=== PATIENT | female | born 1990 | race Caucasian/White ===

== ENCOUNTER 2016-11-29 11:30 | Emergency (ER) | payer OTHER ==
[2016-11-29 12:24] LABS: BASOPHIL 0.8 % (0-2); EOSINOPHIL 2.2 % (0-5); HCT 38.6 % (37.0-47.0); HGB 13.7 g/dl (12.5-16.0); LYMPHOCYTE 44.8 % (15-48); MCH 31.1 pg (25.0-31.0); MCHC 35.5 g/dL (32.0-36.0); MCV 87.5 fL (78.0-100.0); MONOCYTE 8.1 % (0-12); MPV 8.8 fL (6.0-9.5); NEUTROPHIL 44.1 % (41-80); PLT 202 K/uL (150-400); RBC 4.41 M/uL (4.20-5.40); RDW 13.4 % (11.5-14.0); WBC 6.3 K/uL (4.0-10.5)
[2016-11-29 12:25] LABS: BILIRUBIN NEGATIVE (NEGATIVE); BLOOD TRACE-INTACT Ery/uL (NEGATIVE); CLARITY CLEAR (CLEAR); COLOR YELLOW (YELLOW); GLUCOSE (U) NORMAL (NORMAL); KETONE (U) NEGATIVE (NEGATIVE); LEUKOCYTES NEGATIVE Leu/uL (NEGATIVE); NITRITE NEGATIVE (NEGATIVE); PROTEIN NEGATIVE (NEGATIVE); UROBILINOGEN 0.2 mg/dL (0.2-1.0)
[2016-11-29 12:31] LABS: URINARY RBC RARE
[2016-11-29 12:42] LABS: CREATININE 0.6 mg/dL (0.5-1.0); POTASSIUM 3.5 mmol/L (3.5-5.1)
== END 2016-11-29 13:32 | disposition home or self-care (01) ==
LOC: FER 11:30
PROVIDERS: Nurse Practitioner
DX: J20.9 Acute bronchitis, unspecified (principal)
CPT/HCPCS: 36415; 71020; 80048; 81001; 85025; 93005

== ENCOUNTER 2021-09-01 19:38 | Emergency (ER) | payer OTHER ==
[2021-09-01 20:56] LABS: CORONAVIRUS 2019 SARS-COV-2 NEGATIVE (NEGATIVE); INFLUENZA A NAA NEGATIVE (NEGATIVE)
[2021-09-01] MEDS ORDERED: IMITREX50 MG PO (21:39)
== END 2021-09-01 22:24 | disposition home or self-care (01) ==
LOC: FER 19:38
PROVIDERS: Emergency Medicine
DX: J06.9 Acute upper respiratory infection, unspecified (principal); G43.909 Migraine, unspecified, not intractable, without status migrainosus; Z20.822 Contact with and (suspected) exposure to COVID-19
CPT/HCPCS: J0780; J1200; J1885; J3030; U0002